=== PATIENT | female | born 1990 | race African-American/Black ===

== ENCOUNTER 2023-06-28 20:58 | Inpatient (IN) ==
[2023-06-28 21:26] VITALS: BMI 46.7
[2023-06-28 21:38] LABS: BILIRUBIN,URINE NEGATIVE (NEGATIVE); BLOOD/HEMOGLOBIN,URINE 2+ (NEGATIVE); COLOR,URINE DARK YELLOW (YELLOW); GLUCOSE, URINE NEGATIVE (NEGATIVE); KETONES,URINE NEGATIVE (NEGATIVE); LEUKOCYTE ESTERASE ,URINE 3+ (NEGATIVE); NITRITES,URINE NEGATIVE (NEGATIVE); PROTEIN,URINE 2+ (NEGATIVE); UROBILINOGEN,URINE 1+ (NORMAL)
[2023-06-28 21:46] LABS: APPEARANCE,URINE HAZY (CLEAR)
[2023-06-28 21:47] LABS: BACTERIA,URINE 1+ /HPF (NEGATIVE); GRANULAR CASTS,URINE RARE /LPF (NEGATIVE); HYALINE CASTS, URINE RARE /LPF (NEGATIVE); SQUAMOUS EPITHELIAL CELL,UR NUMEROUS /HPF (NEGATIVE)
[2023-06-28 21:48] LABS: YEAST,URINE FEW /HPF (NEGATIVE)
[2023-06-28] MEDS ORDERED: ZOFRAN INJ 4 MG VIAL IVP PRN (22:20)
[2023-06-28] MEDS ORDERED: REGLAN INJ 10 MG VIAL IVP PRN (22:20)
[2023-06-28] MEDS ORDERED: NUBAIN INJ 20 MG AMP IVP PRN (22:20)
[2023-06-28] MEDS ORDERED: PITOCIN ONE (22:27)
[2023-06-28] MEDS ORDERED: LR 1,000 ML IV 1,000 ML IV ONE (22:28)
[2023-06-28] MEDS ORDERED: PITOCIN IVP ONE (22:33)
[2023-06-28] MEDS: LR 1,000 ML IV 1,000 ML IV SCH (22:50)
[2023-06-28] MEDS ORDERED: CLEOCIN VIAL 600 MG 900 MG in D5W 50 ML IV 50 ML IV SCH (23:00)
[2023-06-28] MEDS: OXYTOCIN 20 UNIT/1,000 ML-NS 20 UNIT/1,000 ML PLAST..BAG IV PRN (23:09)
[2023-06-28 23:17] LABS: HEMOGLOBIN 10.9 g/dL (12.0-16.0)
[2023-06-28 23:20] LABS: BLOOD UREA NITROGEN 15 mg/dL (7-18); CALCIUM 8.3 mg/dL (8.5-10.1); CARBON DIOXIDE 22.6 mmol/L (21-32); CHLORIDE 104 mmol/L (98-107); CREATININE 0.68 mg/dL (0.55-1.02); GLUCOSE 90 mg/dL (65-99); POTASSIUM 4.1 mmol/L (3.5-5.1); SODIUM 136 mmol/L (136-145); eGFR NON BLACK RACES > 60 (>60)
[2023-06-28] MEDS: CLEOCIN 600 MG IV PREMIX 600 MG/50 ML BAG IV ONE (23:23)
[2023-06-28 23:25] LABS: BASOPHILS % (AUTO) 0.2 % (0.2-1.0); EOSINOPHILS # (AUTO) 0.1 x10^3/uL (0.0-0.2); EOSINOPHILS % (AUTO) 0.7 % (0.9-2.9); HEMATOCRIT 33.7 % (36.0-47.0); LYMPHOCYTES # (AUTO) 1.3 X10^3/uL (1.3-2.9); LYMPHOCYTES % (AUTO) 13.3 % (21.0-51.0); MEAN CORPUSCULAR HEMOGLOBIN 26.6 pg (27.0-34.0); MEAN CORPUSCULAR HGB CONC 32.3 g/dL (33.0-35.0); MEAN CORPUSCULAR VOLUME 82.2 fL (80.0-100.0); MEAN PLATELET VOLUME 8.9 fL (7.4-11.0); MONOCYTES # (AUTO) 0.9 x10^3/uL (0.3-0.8); MONOCYTES % (AUTO) 8.7 % (0.0-13.0); NEUTROPHILS # (AUTO) 7.5 x10^3/uL (2.2-4.8); NEUTROPHILS % (AUTO) 77.1 % (42.0-75.0); PLATELET COUNT 297 X10^3/uL (150.0-450.0); WHITE BLOOD COUNT 9.8 X10^3/uL (3.6-10.0)
[2023-06-28] MEDS: CLEOCIN 300 MG IV PREMIX 300 MG/50 ML BAG IV ONE (23:53)
[2023-06-29] MEDS: LR 1,000 ML IV 1,000 ML IV ONE (00:30)
[2023-06-29] MEDS: FENTANYL VIAL INJ 100 mcg ONE (01:36)
[2023-06-29] MEDS: NAROPIN EPIDURAL 0.2% 100 ML ONE (01:36)
[2023-06-29] MEDS: BETADINE SOLN ONE (04:07)
[2023-06-29] MEDS: PITOCIN IVP ONE (04:12)
[2023-06-29] MEDS ORDERED: MILK OF MAGNESIA PO PRN (04:58)
[2023-06-29] MEDS ORDERED: DERMOPLAST PAIN RELIEF SPRAY TOP PRN (04:58)
[2023-06-29] MEDS ORDERED: AMBIEN PO PRN (04:58)
[2023-06-29] MEDS ORDERED: MOTRIN TAB 800 MG PO PRN (04:58)
[2023-06-29] MEDS: MOTRIN TAB 800 MG PO PRN (06:14)
[2023-06-29] MEDS: OXYTOCIN 20 UNIT/1,000 ML-NS 20 UNIT/1,000 ML PLAST..BAG IV SCH (06:56)
[2023-06-29] MEDS: PRENATAL PLUS PO SCH (08:28)
[2023-06-29] MEDS: NS 100 ML IV 100 ML with VENOFER 200 MG IV ONE (11:19)
[2023-06-29 14:46] LABS: HEMATOCRIT 31.6 % (36.0-47.0); HEMOGLOBIN 10.3 g/dL (12.0-16.0)
[2023-06-30 08:58] VITALS: BP 132/80; PULSE 74; TEMP 97.5; O2SAT 99
[2023-06-30 13:56] VITALS: RESP 18
== END 2023-06-30 12:05 | disposition home or self-care (01) | DRG 807 ==
LOC: ER 21:04 → LD 22:24 → MED/SURG 06-29 05:40
PROVIDERS: ADMIT Obstetrics & Gynecology Obstetrics; ATTEND Obstetrics & Gynecology Obstetrics